=== PATIENT | female | born 1965 | race African-American/Black ===

== ENCOUNTER 2016-11-01 17:33 | Inpatient (IN) | payer MEDICAID, OTHER ==
[~2016-11-01] VITALS: Ht 172.7 cm; Wt 100.0 kg
[2016-11-01 18:21] LABS: BASOPHILS % 0.8 % (0.0-2.0); EOSINOPHILS % 1.1 % (0.0-5.0); HEMATOCRIT. 40.1 % (36.0-48.0); HEMOGLOBIN. 13.3 g/dL (12.0-16.0); LYMPHOCYTES % 49.5 % (20.0-50.0); MEAN CORPUSCULAR VOLUME 81.7 fL (81.0-99.0); MEAN PLATELET VOLUME 8.9 fl (7.4-10.4); MONOCYTES % 6.4 % (2.0-8.0); NEUTROPHILS % 42.2 % (40.0-76.0); PLATELET 228 x1000/uL (130-400); RED BLOOD CELL COUNT 4.91 mill/uL (4.2-5.4); RED CELL DISTRIBUTION WIDTH 14.1 % (11.6-14.6)
[2016-11-01 18:27] LABS: PROTHROMBIN TIME 10.7 sec (9.4-11.6)
[2016-11-01 18:28] LABS: CHLORIDE 103 mEq/L (98-107)
[2016-11-01 18:31] LABS: CARBON DIOXIDE 23 mEq/L (21-32)
[2016-11-01 18:38] LABS: TROPONIN I < 0.02 ng/mL (0.00-0.04)
[2016-11-01 19:54] LABS: CLARITY URINE CLOUDY (CLEAR); COLOR URINE YELLOW (YELLOW); GLUCOSE URINE NEGATIVE (NEGATIVE); KETONES URINE NEGATIVE (NEGATIVE); LEUKOCYTE ESTERASE URINE 2+ (NEGATIVE); NITRITE URINE NEGATIVE (NEGATIVE); OCCULT BLOOD URINE NEGATIVE (NEGATIVE); PH URINE 5.5 (4.5-8.0); PROTEIN URINE TRACE (NEGATIVE); SPECIFIC GRAVITY URINE 1.021 (1.005-1.030); UROBILINOGEN URINE 0.2 E.U./dL (0.2-1.0)
[2016-11-01 20:11] LABS: *AMPHETAMINES SCREEN URINE NEGATIVE (NEGATIVE); *BARBITURATES SCREEN URINE NEGATIVE (NEGATIVE); *BENZODIAZEPINES SCREEN URINE NEGATIVE (NEGATIVE); *COCAINE SCREEN URINE NEGATIVE (NEGATIVE); CANNABINOID URINE SCREEN PRESUMTIVE POSITIVE (NEGATIVE); METHADONE URINE SCREEN NEGATIVE (NEGATIVE); OPIATES URINE SCREEN NEGATIVE (NEGATIVE); PHENCYCLIDINE URINE SCREEN NEGATIVE (NEGATIVE)
[2016-11-02 03:40] VITALS: BP 145/81
[2016-11-02] MEDS ORDERED: IBUP-2030 PO (03:40)
[2016-11-02 03:41] VITALS: BP 145/81
[2016-11-02] MEDS ORDERED: IPRATROPIUM/ALBUTEROL 0.5-3(2.5)MG/3ML NEB HHN PRN (07:00)
[2016-11-02 08:00] VITALS: BP 145/99
[2016-11-02 08:28] LABS: HEMATOCRIT 39.4 % (36.0-48.0); HEMOGLOBIN 13.2 g/dL (12.0-16.0); MEAN CORPUSCULAR HEMOGLOBIN 27.1 pg (28.0-32.0); MEAN CORPUSCULAR VOLUME 80.8 fL (81.0-99.0); PLATELET 229 x1000/uL (130-400); RED BLOOD CELL COUNT 4.88 mill/uL (4.2-5.4); RED CELL DISTRIBUTION WIDTH 14.1 % (11.6-14.6)
[2016-11-02 08:58] LABS: CARBON DIOXIDE 28 mEq/L (21-32); CHLORIDE 107 mEq/L (98-107)
[2016-11-02] MEDS: ASPIRIN 81MG TABLET PO SCH (09:52)
[2016-11-02] MEDS: SODIUM CHLORIDE 0.9% 1,000 ML IV SCH (09:52)
[2016-11-02] MEDS: LEVOFLOXACIN 500MG PREMIX 100 ML IV SCH (11:15)
[2016-11-02 12:00] VITALS: BP 134/96
[2016-11-02 16:00] VITALS: BP 131/88
[2016-11-02 20:00] VITALS: BP 140/95
[2016-11-03] VITALS: BP 135/84
[2016-11-03 04:00] VITALS: BP 140/80
[2016-11-03] MEDS: SODIUM CHLORIDE 0.9% 1,000 ML IV SCH ×2 (04:55→09:40)
[2016-11-03 07:56] VITALS: BP 150/90
[2016-11-03] MEDS: ASPIRIN 81MG TABLET PO SCH (08:43)
[2016-11-03] MEDS: LEVOFLOXACIN 500MG PREMIX 100 ML IV SCH (10:37)
[2016-11-03 12:00] VITALS: BP 153/96
[2016-11-03 14:42] VITALS: BP 153/96
[2016-11-03] MEDS ORDERED: AMLODIPINE 5MG TABLET PO SCH (21:00)
[2016-11-04] MEDS ORDERED: LEVOFLOXACIN 500MG TABLET PO SCH (11:00)
== END 2016-11-03 15:35 | disposition home or self-care (01) | DRG 48 ==
LOC: ER 17:33 → 5WST 11-02 01:10 → EDBEDREQ 11-02 01:28 → ENRESERV 11-02 02:21
PROVIDERS: ADMIT Hospitalist; ATTEND Hospitalist
DX: G90.8 Other disorders of autonomic nervous system (principal); N12 Tubulo-interstitial nephritis, not specified as acute or chronic; E86.0 Dehydration; F17.200 Nicotine dependence, unspecified, uncomplicated; F12.10 Cannabis abuse, uncomplicated; Z78.0 Asymptomatic menopausal state
CPT/HCPCS: 36415; 71010; 80048; 80053; 80305; 81001; 83880; 84484; 85025; 85027; 85610; 93005; 99285; J1956; J7030

== ENCOUNTER 2022-08-26 18:28 | Emergency (ER) | payer MEDICAID ==
[~2022-08-26] VITALS: Ht 172.7 cm; Wt 82.0 kg
[~2022-08-26 18:28] MED LIST: IBUP-2030 PO
[2022-08-26 18:45] VITALS: O2SAT 96
[2022-08-26 19:28] LABS: CHLORIDE 105 mEq/L (98-107)
[2022-08-26 19:39] LABS: BASOPHILS % 0.6 % (0.0-2.0); EOSINOPHILS % 0.2 % (0.0-5.0); HEMATOCRIT. 36.3 % (36.0-48.0); HEMOGLOBIN. 12.1 g/dL (12.0-16.0); LYMPHOCYTES % 25.7 % (20.0-50.0); MEAN CORPUSCULAR HEMOGLOBIN 27.4 pg (28.0-32.0); MEAN CORPUSCULAR VOLUME 82.5 fL (81.0-99.0); MEAN PLATELET VOLUME 7.8 fl (7.4-10.4); MONOCYTES % 10.4 % (2.0-8.0); NEUTROPHILS % 63.1 % (40.0-76.0); PLATELET 214 x1000/uL (130-400); RED CELL DISTRIBUTION WIDTH 16.1 % (11.6-14.6)
[2022-08-26 22:01] VITALS: BP 157/96; PULSE 78; RESP 15; TEMP 98.1
== END 2022-08-26 22:20 | disposition left against medical advice (07) ==
LOC: ER 18:28
DX: Z53.21 Procedure and treatment not carried out due to patient leaving prior to being seen by health care provider (principal)
CPT/HCPCS: 36415; 71045; 80053; 84484; 85025; 99281